=== PATIENT | female | born 1990 | race Caucasian/White ===

== ENCOUNTER 2018-10-02 11:51 | Emergency (ER) | payer MEDICAID ==
[~2018-10-02] VITALS: Ht 154.9 cm; Wt 61.6 kg
[~2018-10-02 11:51] MED LIST: BISA10SU60 RC; DIAZ5TAB4 PO; HYDR-4353 PO; IBUP-24 PO; NABU500T2 PO; ONDA8TAB9 PO
[2018-10-02 12:00] VITALS: BP 121/83
[2018-10-02] MEDS ORDERED: vancomycin/NS 1 GM ADD-VANTAGE 250 ML IV ONE (13:20)
[2018-10-02] MEDS ORDERED: SULF1TAB49 PO (13:42)
[2018-10-02] MEDS ORDERED: CEPH500C5 PO (13:42)
[2018-10-02] MEDS ORDERED: ACET-3068 PO (13:42)
[2018-10-02] MEDS ORDERED: diphenhydrAMINE 50 mg/ml inj IV ONE (14:50)
== END 2018-10-02 14:57 | disposition home or self-care (01) ==
LOC: ER 11:51
DX: H66.92 Otitis media, unspecified, left ear (principal); G89.29 Other chronic pain; F12.90 Cannabis use, unspecified, uncomplicated; Z98.51 Tubal ligation status; Z88.8 Allergy status to other drugs, medicaments and biological substances
CPT/HCPCS: 96365; 96375; 99283; J1200; J3370

== ENCOUNTER 2019-01-29 16:23 | Emergency (ER) | payer MEDICAID ==
[~2019-01-29] VITALS: Ht 157.5 cm; Wt 67.5 kg
[~2019-01-29 16:23] MED LIST changes: +CEPH500C5 PO
[2019-01-29 16:31] VITALS: BP 108/78
[2019-01-29] MEDS ORDERED: LIDOcaine 5% patch TP STA (17:14)
[2019-01-29] MEDS ORDERED: PRED20TA PO (17:35)
[2019-01-29] MEDS ORDERED: LIDO700A32 TOP (17:38)
== END 2019-01-29 17:52 | disposition home or self-care (01) ==
LOC: ER 16:23
DX: M25.512 Pain in left shoulder (principal); G89.29 Other chronic pain; F41.9 Anxiety disorder, unspecified; F32.9 Major depressive disorder, single episode, unspecified; F12.10 Cannabis abuse, uncomplicated; Z87.11 Personal history of peptic ulcer disease; Z87.440 Personal history of urinary (tract) infections; Z98.51 Tubal ligation status; Z88.1 Allergy status to other antibiotic agents; Z79.899 Other long term (current) drug therapy
CPT/HCPCS: 73030; 99283

== ENCOUNTER 2019-02-09 17:46 | Emergency (ER) | payer MEDICAID ==
[~2019-02-09] VITALS: Ht 162.6 cm; Wt 70.0 kg
[~2019-02-09 17:46] MED LIST changes: +LIDO700A32 TOP
[2019-02-09 18:23] LABS: BASOPHILS # (AUTO) 0.1 X10'3 (0-0.2); BASOPHILS % (AUTO) 1.2 % (0-1); EOSINOPHILS # (AUTO) 0.1 X10'3 (0-0.9); EOSINOPHILS % (AUTO) 1.3 % (0-6); HEMATOCRIT 38.2 % (35.0-45.0); HEMOGLOBIN 13.3 g/dl (12.0-16.0); LYMPHOCYTES # (AUTO) 1.9 X10'3 (1.1-4.8); LYMPHOCYTES % (AUTO) 30.9 % (21-51); MEAN CORPUSCULAR HEMOGLOBIN 31.2 PG (27.0-31.0); MEAN CORPUSCULAR HGB CONC 34.8 g/dL (33.0-36.5); MEAN CORPUSCULAR VOLUME 89.8 FL (78-98); MEAN PLATELET VOLUME 8.8 FL (7.4-10.4); MONOCYTES # (AUTO) 0.6 X10'3 (0-0.9); MONOCYTES % (AUTO) 10.4 % (2-12); NEUTROPHILS # (AUTO) 3.4 X10'3 (1.8-7.7); NEUTROPHILS % (AUTO) 56.2 % (42-75); PLATELET COUNT 189 X10'3 (140-440); RED BLOOD COUNT 4.26 X10'6 (4.20-5.60); RED CELL DISTRIBUTION WIDTH 13.1 % (11.5-14.5); WHITE BLOOD COUNT 6.1 X10'3 (4.5-11.0)
[2019-02-09 18:36] LABS: URINE HCG NEGATIVE (NEG)
[2019-02-09 18:37] LABS: CLARITY,URINE SLIGHTLY CLOUDY (Clear); COLOR,URINE YELLOW (Yellow); GLUCOSE, URINE NEGATIVE (Neg); KETONES,URINE NEGATIVE (Neg); LEUKOCYTE ESTERASE ,URINE NEGATIVE (Neg); NITRITES, URINE NEGATIVE (Neg); OCCULT BLOOD,URINE NEGATIVE (Neg); PH,URINE 6.5 (4.8-8.0); PROTEIN,URINE NEGATIVE (Neg); UROBILINOGEN,URINE 0.2 E.U/dL (0.2-1.0)
[2019-02-09 18:55] LABS: UA COLLECTION TYPE CLN CATCH MIDSTREAM
[2019-02-09 19:01] LABS: BACTERIA,URINE 2+ /HPF (Neg); RBC,URINE NONE SEEN /HPF (0-2); WBC,URINE 0-4 /HPF (0-4)
[2019-02-09 19:02] LABS: SQUAMOUS EPITHELIAL CELL,UR MANY /LPF (FEW)
--- NOTE | 2019-02-09 19:05 | NUR ---
URINE REJECTED FOR CULTURES PER LAB
[2019-02-09 19:27] LABS: ALANINE AMINOTRANSFERASE 19 U/L (12-78); ALKALINE PHOSPHATASE 46 IU/L (46-116); ANION GAP 10 (8-16); ASPARTATE AMINO TRANSFERASE 14 U/L (10-37); BLOOD UREA NITROGEN 18 MG/DL (7-18); BUN/CREATININE RATIO 19.8 (6.6-38.0); CALCIUM 9.3 MG/DL (8.5-10.1); CHLORIDE 105 MMOL/L (99-107); CREATININE 0.91 MG/DL (0.40-0.90); GLUCOSE 90 MG/DL (70-104); POTASSIUM 3.3 MMOL/L (3.5-5.1); SODIUM 139 MMOL/L (135-145); TOTAL CARBON DIOXIDE 24.3 MMOL/L (24-32); eGFR 73 ML/MIN
[2019-02-09 20:23] LABS: LIPASE 150 U/L (73-393)
[2019-02-09] MEDS ORDERED: ketorolac tromethamine 15mg/ml inj. IM ONE (20:45)
[2019-02-09] MEDS ORDERED: ondansetron 4mg rapidly disintigrating tab PO ONE (20:45)
--- NOTE | 2019-02-09 21:30 | NUR ---
US underway. Pt reports decrease of pain until US procedure where it is increasing again.
[2019-02-09] MEDS ORDERED: normal saline 1000ML IV soln IVB ONE (22:35)
[2019-02-09] MEDS ORDERED: morphine 4 MG/ML inj SYRINge IV ONE (22:35)
[2019-02-09] MEDS ORDERED: ondansetron/PF 4mg/2ml inj IV ONE (22:35)
[2019-02-09] MEDS ORDERED: ONDA4TAB6 PO (23:04)
[2019-02-09 23:20] VITALS: BP 121/87
== END 2019-02-09 23:26 | disposition home or self-care (01) ==
LOC: ER 17:47
DX: R10.11 Right upper quadrant pain (principal); R10.13 Epigastric pain; G89.29 Other chronic pain; F12.90 Cannabis use, unspecified, uncomplicated; Z88.8 Allergy status to other drugs, medicaments and biological substances; Z79.2 Long term (current) use of antibiotics; Z87.11 Personal history of peptic ulcer disease; Z98.51 Tubal ligation status; Z98.890 Other specified postprocedural states; Z79.899 Other long term (current) drug therapy
CPT/HCPCS: 36415; 74176; 76700; 80053; 81001; 81025; 83690; 85025; 85610; 96372; 96374; 96375; 99284; J1885; J2270; J2405; J7030

== ENCOUNTER 2019-05-30 08:26 | Emergency (ER) | payer OTHER, MEDICAID ==
[~2019-05-30] VITALS: Ht 157.5 cm; Wt 64.9 kg
[~2019-05-30 08:26] MED LIST changes: +ONDA4TAB6 PO
[2019-05-30 08:29] VITALS: BP 116/68
[2019-05-30] MEDS ORDERED: acetaminophen 325mg tablet PO ONE (09:05)
== END 2019-05-30 09:37 | disposition home or self-care (01) ==
LOC: ER 08:27
DX: S93.492A Sprain of other ligament of left ankle, initial encounter (principal); G89.29 Other chronic pain; F41.9 Anxiety disorder, unspecified; F32.9 Major depressive disorder, single episode, unspecified; F12.90 Cannabis use, unspecified, uncomplicated; Z98.51 Tubal ligation status; Z98.890 Other specified postprocedural states; Z88.8 Allergy status to other drugs, medicaments and biological substances; Z79.899 Other long term (current) drug therapy; X50.1XXA Overexertion from prolonged static or awkward postures, initial encounter; Y93.89 Activity, other specified; Y92.89 Other specified places as the place of occurrence of the external cause; Y99.8 Other external cause status
CPT/HCPCS: 73610; 99284

== ENCOUNTER 2019-09-14 13:14 | Emergency (ER) | payer MEDICAID, OTHER ==
[~2019-09-14] VITALS: Ht 154.9 cm; Wt 65.2 kg
[2019-09-14 13:38] VITALS: BP 145/95
[2019-09-14] MEDS ORDERED: LIDOcaine 1% W/epiNEPHrine 1:200,000 10ml vial IJ ONE (14:40)
[2019-09-14] MEDS ORDERED: BUPIVAcaine/PF 2.5 mg/ml (0.25%) 30ml vial IJ ONE (14:50)
[2019-09-14] MEDS ORDERED: BUPIVAcaine/PF 2.5mg/ml (0.25%) 10ml vial IJ ONE (15:05)
[2019-09-14] MEDS ORDERED: PENI500T2 PO (15:22)
== END 2019-09-14 15:46 | disposition home or self-care (01) ==
LOC: ER 13:15
DX: K04.7 Periapical abscess without sinus (principal); G89.29 Other chronic pain; F12.90 Cannabis use, unspecified, uncomplicated; Z87.891 Personal history of nicotine dependence; Z98.890 Other specified postprocedural states; Z98.51 Tubal ligation status; Z88.8 Allergy status to other drugs, medicaments and biological substances; Z79.899 Other long term (current) drug therapy
CPT/HCPCS: 64400; 99284; J3490

== ENCOUNTER 2019-10-22 15:01 | Emergency (ER) | payer MEDICAID ==
[~2019-10-22] VITALS: Ht 157.5 cm; Wt 65.9 kg
[~2019-10-22 15:01] MED LIST changes: -CEPH500C5 PO
[2019-10-22 15:56] VITALS: BP 131/81
[2019-10-22 16:41] LABS: BASOPHILS # (AUTO) 0.1 X10'3 (0-0.2); BASOPHILS % (AUTO) 1.7 % (0-1); EOSINOPHILS # (AUTO) 0.1 X10'3 (0-0.9); EOSINOPHILS % (AUTO) 0.8 % (0-6); HEMATOCRIT 39.6 % (35.0-45.0); HEMOGLOBIN 13.8 g/dl (12.0-16.0); LYMPHOCYTES # (AUTO) 1.9 X10'3 (1.1-4.8); LYMPHOCYTES % (AUTO) 29.9 % (21-51); MEAN CORPUSCULAR HEMOGLOBIN 31.9 PG (27.0-31.0); MEAN CORPUSCULAR HGB CONC 34.8 g/dL (33.0-36.5); MEAN CORPUSCULAR VOLUME 91.5 FL (78-98); MEAN PLATELET VOLUME 8.6 FL (7.4-10.4); MONOCYTES # (AUTO) 0.5 X10'3 (0-0.9); MONOCYTES % (AUTO) 7.9 % (2-12); NEUTROPHILS # (AUTO) 3.8 X10'3 (1.8-7.7); NEUTROPHILS % (AUTO) 59.7 % (42-75); PLATELET COUNT 214 X10'3 (140-440); RED BLOOD COUNT 4.33 X10'6 (4.20-5.60); RED CELL DISTRIBUTION WIDTH 13.5 % (11.5-14.5); WHITE BLOOD COUNT 6.4 X10'3 (4.5-11.0)
[2019-10-22 16:45] LABS: CLARITY,URINE CLOUDY (Clear); COLOR,URINE YELLOW (Yellow); GLUCOSE, URINE NEGATIVE (Neg); KETONES,URINE NEGATIVE (Neg); LEUKOCYTE ESTERASE ,URINE NEGATIVE (Neg); NITRITES, URINE NEGATIVE (Neg); OCCULT BLOOD,URINE NEGATIVE (Neg); PROTEIN,URINE NEGATIVE (Neg); URINE HCG NEGATIVE (NEG); UROBILINOGEN,URINE 0.2 E.U/dL (0.2-1.0)
[2019-10-22 16:47] LABS: UA COLLECTION TYPE CLN CATCH MIDSTREAM
[2019-10-22 16:51] LABS: AMORPHOUS URATES 3+; BACTERIA,URINE FEW /HPF (Neg); MUCUS STRANDS NONE SEEN /LPF (Neg); RBC,URINE NONE SEEN /HPF (0-2); SQUAMOUS EPITHELIAL CELL,UR MODERATE /LPF (FEW); WBC,URINE 0-4 /HPF (0-4)
[2019-10-22 16:52] LABS: YEAST FEW /HPF (NEGATIVE)
[2019-10-22 16:56] LABS: ALANINE AMINOTRANSFERASE 15 U/L (12-78); ALBUMIN 4.3 G/DL (3.4-5.0); ALBUMIN/GLOBULIN RATIO 1.1 (1.1-1.5); ALKALINE PHOSPHATASE 47 IU/L (46-116); ANION GAP 6 (8-16); ASPARTATE AMINO TRANSFERASE 15 U/L (10-37); BILIRUBIN,TOTAL 1.3 MG/DL (0.1-1.0); BLOOD UREA NITROGEN 24 MG/DL (7-18); CALCIUM 9.7 MG/DL (8.5-10.1); CHLORIDE 104 MMOL/L (99-107); CREATININE 0.89 MG/DL (0.40-0.90); GLUCOSE 87 MG/DL (70-104); LIPASE 130 U/L (73-393); POTASSIUM 3.9 MMOL/L (3.5-5.1); SODIUM 139 MMOL/L (135-145); TOTAL CARBON DIOXIDE 28.6 MMOL/L (24-32); TOTAL PROTEIN 8.1 G/DL (6.4-8.2); eGFR 74 ML/MIN
[2019-10-22] MEDS ORDERED: pantoprazole 40mg Tablet.DR PO STA (16:57)
[2019-10-22] MEDS ORDERED: ondansetron 4mg rapidly disintigrating tab PO ONE (17:00)
[2019-10-22] MEDS ORDERED: ONDA8TAB6 PO (17:06)
== END 2019-10-22 17:12 | disposition home or self-care (01) ==
LOC: ER 15:01
DX: R10.12 Left upper quadrant pain (principal); G89.29 Other chronic pain; F41.9 Anxiety disorder, unspecified; F32.9 Major depressive disorder, single episode, unspecified; F12.90 Cannabis use, unspecified, uncomplicated; Z98.51 Tubal ligation status; Z98.890 Other specified postprocedural states; Z88.8 Allergy status to other drugs, medicaments and biological substances; Z79.899 Other long term (current) drug therapy
CPT/HCPCS: 36415; 80053; 81001; 81025; 83690; 85025; 99283

== ENCOUNTER 2020-07-11 09:03 | Emergency (ER) | payer MEDICAID ==
[~2020-07-11] VITALS: Ht 157.5 cm; Wt 70.4 kg
[~2020-07-11 09:03] MED LIST changes: +NABU-134 PO; -NABU500T2 PO; +ONDA8TAB6 PO
[2020-07-11] MEDS ORDERED: morphine 10mg/ml inj. IV ONE (09:40)
[2020-07-11] MEDS ORDERED: normal saline 1000ML IV soln IVB ONE (09:40)
[2020-07-11] MEDS ORDERED: LORazepam 2 mg/ml vial IV ONE (09:40)
[2020-07-11] MEDS ORDERED: proCHLORperazine 10 MG/2 ml inj IV PRN (09:40)
[2020-07-11 10:44] LABS: BASOPHILS % (AUTO) 0.3 % (0-1); EOSINOPHILS % (AUTO) 0.3 % (0-6); HEMATOCRIT 37.6 % (35.0-45.0); HEMOGLOBIN 12.9 g/dl (12.0-16.0); LYMPHOCYTES # (AUTO) 0.4 X10'3 (1.1-4.8); LYMPHOCYTES % (AUTO) 2.6 % (21-51); MEAN CORPUSCULAR HEMOGLOBIN 31.5 PG (27.0-31.0); MEAN CORPUSCULAR HGB CONC 34.3 g/dL (33.0-36.5); MEAN CORPUSCULAR VOLUME 91.9 FL (78-98); MEAN PLATELET VOLUME 8.7 FL (7.4-10.4); MONOCYTES # (AUTO) 1.1 X10'3 (0-0.9); MONOCYTES % (AUTO) 7.2 % (2-12); NEUTROPHILS # (AUTO) 13.9 X10'3 (1.8-7.7); NEUTROPHILS % (AUTO) 89.6 % (42-75); PLATELET COUNT 186 X10'3 (140-440); RED BLOOD COUNT 4.09 X10'6 (4.20-5.60); WHITE BLOOD COUNT 15.5 X10'3 (4.5-11.0)
[2020-07-11] MEDS ORDERED: normal saline 1000ML IV soln IV ONE (10:50)
[2020-07-11 10:58] LABS: ALANINE AMINOTRANSFERASE 16 U/L (12-78); ALBUMIN 3.8 G/DL (3.4-5.0); ALBUMIN/GLOBULIN RATIO 0.9 (1.1-1.5); ALKALINE PHOSPHATASE 58 IU/L (46-116); ANION GAP 13 (8-16); ASPARTATE AMINO TRANSFERASE 17 U/L (10-37); BILIRUBIN,TOTAL 1.6 MG/DL (0.1-1.0); BLOOD UREA NITROGEN 10 MG/DL (7-18); BUN/CREATININE RATIO 8.7 (6.6-38.0); CALCIUM 9.1 MG/DL (8.5-10.1); CHLORIDE 96 MMOL/L (99-107); CREATININE 1.15 MG/DL (0.40-0.90); GLUCOSE 109 MG/DL (70-104); LIPASE 52 U/L (73-393); POTASSIUM 3.1 MMOL/L (3.5-5.1); SODIUM 131 MMOL/L (135-145); TOTAL CARBON DIOXIDE 22.1 MMOL/L (24-32); TOTAL PROTEIN 8.2 G/DL (6.4-8.2); eGFR 55 ML/MIN
[2020-07-11 11:51] LABS: CLARITY,URINE TURBID (Clear); COLOR,URINE STRAW (Yellow); GLUCOSE, URINE NEGATIVE (Neg); KETONES,URINE 40 mg/dl (Neg); LEUKOCYTE ESTERASE ,URINE SMALL (Neg); NITRITES, URINE NEGATIVE (Neg); OCCULT BLOOD,URINE LARGE (Neg); PROTEIN,URINE TRACE mg/dl (Neg); UROBILINOGEN,URINE 0.2 E.U/dL (0.2-1.0)
[2020-07-11 11:52] LABS: URINE HCG NEGATIVE (NEG)
[2020-07-11 12:02] LABS: SQUAMOUS EPITHELIAL CELL,UR MANY /LPF (FEW)
[2020-07-11 12:03] LABS: BACTERIA,URINE 4+ /HPF (Neg); MUCUS STRANDS NONE SEEN /LPF (Neg); RBC,URINE 0-2 /HPF (0-2)
[2020-07-11 12:05] LABS: TRANSITIONAL EPI CELLS,URINE FEW /HPF
[2020-07-11] MEDS ORDERED: ondansetron/PF 4mg/2ml inj IV ONE (12:45)
--- NOTE | 2020-07-11 13:02 | NUR ---
PT TO CT.
[2020-07-11 13:36] LABS: UA COLLECTION TYPE NON-SPECIFIED
[2020-07-11] MEDS ORDERED: CefTRIAXone/D5W-Rocephin 1gm 50 ML IV ONE (13:45)
[2020-07-11] MEDS ORDERED: CIPR-230 PO (14:46)
[2020-07-11] MEDS ORDERED: ONDA4TAB6 PO (14:46)
[2020-07-11 15:17] VITALS: BP 103/59
== END 2020-07-11 15:22 | disposition home or self-care (01) ==
LOC: ER 09:03
DX: N12 Tubulo-interstitial nephritis, not specified as acute or chronic (principal); N28.89 Other specified disorders of kidney and ureter; R11.2 Nausea with vomiting, unspecified; R50.9 Fever, unspecified; G89.29 Other chronic pain; F41.9 Anxiety disorder, unspecified; F32.9 Major depressive disorder, single episode, unspecified; F12.90 Cannabis use, unspecified, uncomplicated; Z87.11 Personal history of peptic ulcer disease; Z87.440 Personal history of urinary (tract) infections; Z98.51 Tubal ligation status; Z98.890 Other specified postprocedural states; Z88.1 Allergy status to other antibiotic agents; Z88.8 Allergy status to other drugs, medicaments and biological substances; Z79.2 Long term (current) use of antibiotics; Z79.899 Other long term (current) drug therapy
CPT/HCPCS: 36415; 74176; 76775; 80053; 81001; 81025; 83605; 83690; 84145; 85025; 87040; 96361; 96365; 96375; 99285; J0696; J0780; J2060; J2270; J7030

== ENCOUNTER 2021-01-15 14:33 | Emergency (ER) | payer MEDICAID ==
[~2021-01-15] VITALS: Ht 157.5 cm; Wt 66.2 kg
[~2021-01-15 14:33] MED LIST changes: -NABU-134 PO; +NABU-139 PO
[2021-01-15 14:57] VITALS: BP 126/81
--- NOTE | 2021-01-15 15:10 | NUR ---
PT STATED TAKES IBUPROFEN DURING DAY AND OXICODONE 5 OF 10MG DOSE AT NIGHT. STATED PAIN IS NOT CONTROLLED BUT PMD DOESNT WANT TO CHANGE PAIN MEDICATION ORDER. 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
[2021-01-15] MEDS ORDERED: LIDOcaine 5% patch TP STA (16:37)
[2021-01-15] MEDS ORDERED: ketorolac tromethamine 15mg/ml inj. IM ONE (16:40)
[2021-01-15] MEDS ORDERED: DICL100G15 TOP (16:52)
[2021-01-15] MEDS ORDERED: LIDO700A32 TOP (16:52)
== END 2021-01-15 17:26 | disposition home or self-care (01) ==
LOC: ER 14:34
DX: M75.42 Impingement syndrome of left shoulder (principal); M25.512 Pain in left shoulder; G89.29 Other chronic pain; F41.9 Anxiety disorder, unspecified; F32.9 Major depressive disorder, single episode, unspecified; F12.90 Cannabis use, unspecified, uncomplicated; Z87.11 Personal history of peptic ulcer disease; Z87.440 Personal history of urinary (tract) infections; Z98.51 Tubal ligation status; Z98.890 Other specified postprocedural states; Z88.1 Allergy status to other antibiotic agents; Z88.8 Allergy status to other drugs, medicaments and biological substances; Z79.899 Other long term (current) drug therapy
CPT/HCPCS: 96372; 99283; J1885

== ENCOUNTER 2021-11-13 18:35 | Emergency (ER) | payer MEDICAID ==
[~2021-11-13] VITALS: Ht 154.9 cm; Wt 68.1 kg
[~2021-11-13 18:35] MED LIST changes: +DICL100G15 TOP
--- NOTE | 2021-11-13 20:45 | NUR ---
DELIMER at bedside
--- NOTE | 2021-11-13 21:16 | NUR ---
Eduardo barkley in [facility] - 11/13/21 at [address] friedman bedside
--- NOTE | 2021-11-13 21:19 | NUR ---
Dr Santacruzfs at bedside
[2021-11-13] MEDS ORDERED: SULF1TAB45 PO (21:32)
[2021-11-13 21:48] VITALS: BP 114/77
== END 2021-11-13 21:50 | disposition home or self-care (01) ==
LOC: ER 18:36
DX: R22.41 Localized swelling, mass and lump, right lower limb (principal); F41.9 Anxiety disorder, unspecified; F32.9 Major depressive disorder, single episode, unspecified; F12.10 Cannabis abuse, uncomplicated; G89.29 Other chronic pain; Z88.8 Allergy status to other drugs, medicaments and biological substances; Z88.6 Allergy status to analgesic agent; Z79.899 Other long term (current) drug therapy
CPT/HCPCS: 99283

== ENCOUNTER 2024-06-01 18:55 | Emergency (ER) | payer MEDICAID ==
[~2024-06-01] VITALS: Ht 154.9 cm; Wt 69.5 kg
[2024-06-01 19:30] LABS: BASOPHILS % (AUTO) 0.6 % (0-1); EOSINOPHILS # (AUTO) 0.1 X10'3 (0-0.9); HEMATOCRIT 37.8 % (35.0-45.0); HEMOGLOBIN 12.8 g/dl (12.0-16.0); LYMPHOCYTES # (AUTO) 1.9 X10'3 (1.1-4.8); LYMPHOCYTES % (AUTO) 27.7 % (21-51); MEAN CORPUSCULAR HEMOGLOBIN 30.9 PG (27.0-31.0); MEAN CORPUSCULAR VOLUME 90.8 FL (78-98); MEAN PLATELET VOLUME 8.6 FL (7.4-10.4); MONOCYTES # (AUTO) 0.7 X10'3 (0-0.9); MONOCYTES % (AUTO) 10.3 % (2-12); NEUTROPHILS # (AUTO) 4.2 X10'3 (1.8-7.7); NEUTROPHILS % (AUTO) 60.4 % (42-75); PLATELET COUNT 243 X10'3 (140-440); RED BLOOD COUNT 4.16 X10'6 (4.20-5.60); RED CELL DISTRIBUTION WIDTH 12.9 % (11.5-14.5); WHITE BLOOD COUNT 6.9 X10'3 (4.5-11.0)
[2024-06-01 19:48] LABS: ALANINE AMINOTRANSFERASE 21 U/L (12-78); ALBUMIN 3.7 G/DL (3.4-5.0); ALBUMIN/GLOBULIN RATIO 0.9 (1.1-1.5); ALKALINE PHOSPHATASE 48 IU/L (46-116); ANION GAP 11 (8-16); ASPARTATE AMINO TRANSFERASE 15 U/L (10-37); BILIRUBIN,TOTAL 0.9 MG/DL (0.1-1.0); BLOOD UREA NITROGEN 19 MG/DL (7-18); BUN/CREATININE RATIO 18.1 (10.0-20.0); CALCIUM 9.1 MG/DL (8.5-10.1); CHLORIDE 105 MMOL/L (99-107); CREATININE 1.05 MG/DL (0.40-0.90); GLUCOSE 101 MG/DL (70-104); POTASSIUM 3.4 MMOL/L (3.5-5.1); SODIUM 141 MMOL/L (135-145); TOTAL CARBON DIOXIDE 24.9 MMOL/L (24-32); TOTAL PROTEIN 7.7 G/DL (6.4-8.2); eCRCL 56 ML/MIN; eGFR 59 ML/MIN
[2024-06-01 19:55] LABS: PRO BRAIN NATRIURETIC PEPTIDE 78 PG/ML (0-125)
[2024-06-01] MEDS: acetaminophen 325mg tablet PO ONE (22:32)
[2024-06-01] MEDS: ketorolac trometh 30MG/ML vial 30 MG/ML VIAL IM ONE (22:34)
[2024-06-01 22:39] VITALS: BP 116/80; PULSE 69; RESP 12; TEMP 97.8; O2SAT 99
== END 2024-06-01 22:41 | disposition home or self-care (01) ==
LOC: ER 18:55
DX: R07.89 Other chest pain (principal); M54.50 Low back pain, unspecified; F12.90 Cannabis use, unspecified, uncomplicated; Z88.1 Allergy status to other antibiotic agents; Z88.5 Allergy status to narcotic agent; Z88.8 Allergy status to other drugs, medicaments and biological substances; Z87.440 Personal history of urinary (tract) infections; Z87.11 Personal history of peptic ulcer disease; Z87.19 Personal history of other diseases of the digestive system; Z98.51 Tubal ligation status
CPT/HCPCS: 36415; 71045; 80053; 83880; 84484; 85025; 93005; 96372; 99285; J1885

== ENCOUNTER 2025-03-24 09:13 | Emergency (ER) | payer MEDICAID ==
[~2025-03-24] VITALS: Ht 154.9 cm; Wt 66.8 kg
[~2025-03-24 09:13] MED LIST changes: +LIDO-52 TOP; -LIDO700A32 TOP
[2025-03-24 09:17] VITALS: TEMP 99.1
[2025-03-24 10:30] LABS: MEAN PLATELET VOLUME 9.5 FL (7.4-10.4); RED CELL DISTRIBUTION WIDTH 14.0 % (11.5-14.5)
--- NOTE | 2025-03-24 10:32 | Physician Documentation ---
History of Present Illness ~ Chief Complaint: Abdominal Pain w/vomiting Stated Complaint: MULTIPLE MED COMPLAINTS Time Seen by MD: 10:18 Primary Medical Doctor: Dr. Mesfin Thacker Source: patient Mode of Arrival: POV Exam Limitations: no limitations HPI Chief Complaint: Abdominal pain, nausea and vomiting Caveat: None Independent Historians: None History of Present Illness: Patient is a 34-year-old woman who complains of diffuse abdominal pain that began . Patient is started vomiting on March 13 and has been vomiting with nausea every day since then. March 12 she was seen by nurse practitioner for Dr. Peralta with gastroenterology who had prescribed her Cipro on March 12. The next day she started to have nausea vomiting. Patient had a colonoscopy on March 01. Patient had a bowel movement yesterday that was white in color and another one this morning. No diarrhea. Patient states that she has had chronic pain nausea and vomiting since she was young the proximally 13 years of age. Patient also smokes marijuana from a very young age. Patient is scheduled to have an endoscopy with Dr. Perlata late March. Patient states that she is having hot flashes. No known fever. PATIENT STATES THAT SHE HAD CABA STOOL YESTERDAY AND TODAY X1. NO MELENA. Review of systems: All systems were reviewed and are negative except for what is indicated in the history of present illness. Past Medical History: Chronic abdominal pain, chronic nausea and vomiting Past Surgical History: Tubal ligation, Social History: Marijuana use, denies other drug use, denies tobacco use Medications: Reviewed as documented Nursing Notes Allergies: Reviewed as documented in Nursing Notes Medication Reconciliation Allergies: Coded Allergies: metronidazole (Verified Allergy, Mild, dizziness and blurred vision, 03/24/25) promethazine HCl (Verified Adverse Reaction, Unknown, 03/24/25) Pt reports makes Rx increases her nausea and emesis Uncoded Allergies: BUDENOSIDE (Allergy, Mild, SHAKY, 01/15/21) Scheduled Bisacodyl (Dulcolax), 1 SUPP RC DAILY Diclofenac Sodium (Voltaren), 1 GM TOP BID Hydrocodone Bit/Acetaminophen ([place] 10-325 Tablet), 1 TAB PO Q6H Lidocaine (Lidoderm), 1 PATCH TOP Q12H PRN Lidocaine (Lidoderm), 1 PATCH TOP Q12H PRN Nabumetone (Nabumetone), 1 TAB PO Q12H Ondansetron Hcl (Zofran), 1 TAB PO Q8H Ondansetron Hcl (Zofran), 1 TAB PO Q6H Scheduled PRN Diazepam (Diazepam), 1 TAB PO Q6H PRN PRN for pain Hydrocodone Bit/Acetaminophen ([place] 10-325 Tablet), 1 TABLET PO DAILY PRN for p ain, (Reported) Ibuprofen (Advil), 1-2 TAB PO DAILY PRN for pain, (Reported) Ondansetron (Zofran Odt), 8 MG PO TID PRN PRN for nausea/vomiting, (Reported) Ondansetron Hcl (Zofran), 1 TAB PO Q6H PRN for nausea/vomiting Past Medical History Past Medical History: *GI/HEPATOBILIARY*, Gastritis, Peptic Ulcer Disease, Hernia, UTI, Chronic Pain, Anxiety, Depression Past Surgical History: , tubal ligation Alcohol Use: None Drug Use: marijuana Lives with: Spouse, Family Lives In: Home Occupation: employed Review of Systems All Other Systems at this time: Reviewed and Negative ROS Patient denies any other acute symptoms other than above. All other systems are negative Physical Exam Vital Signs: RN Vital Signs have been reviewed: Yes, Temperature: 99.1, Source: Oral, Heart Rate: 69, Respiratory Rate: 18, BP: 135/88, Pulse Oximetry: 98, Weight: 66.820 Pulse Oximetry Reflects: adequate oxygenation Physical Exam General Appearance: MILD DISTRESS HEENT: Normal OP, moist oral mucosa, PERRL, EOMI Neck: supple, normal ROM, trachea midline Pulmonary: No respiratory distress, CTA, BS equal Cardiac: RRR, no murmur, rub or gallop, GI: nondistended, soft, DIFFUSE TENDERNESS, normal bowel sounds, no guarding, no rebound Extremities: normal ROM, no swelling, non-tender Skin: intact, dry, warm, no rashes Neuro: AAOx3, speech is clear, no focal motor weakness Psych: normal affect, good eye contact, no apparent hallucination, normal speech Progress Results/Orders Results/Orders Orders - NATHALIE KOEHLER MD Morphine 4mg/Ml Inj. (Morphine Inj.) (03/24/25 10:25) Ed Iv Antiemetics (03/24/25 10:24) Ed Iv Pain Medications (03/24/25 10:24) Po Challenge (03/24/25 15:33) Completed Orders - NATHALIE KOEHLER MD Urinalysis, Cult If Indicated (03/24/25 09:22) Hcg, Ur Ql (03/24/25 09:22) Cbc/Diff (03/24/25 09:22) BMP (03/24/25 09:22) Lipase (03/24/25 09:22) CMP (03/24/25 09:22) Normal Saline 1000ml (0.9% Sodium Chlori (03/24/25 10:25) Diphenhydramine Inj (Benadryl Inj.) (03/24/25 10:25) Ketorolac Trometh 15mg/Ml Vial (Toradol (03/24/25 10:25) Haloperidol Lact. (Haldol) (03/24/25 10:25) Medications Received in ER Medications (Trade) Dose Ordered Sig/Scottie Route PRN Reason Start Time Stop Time Status Last Admin Dose Admin (morphine inj.) 4 mg Q20M PRN IV moderate to severe pain 4-10 03/24/25 10:25 03/24/25 11:46 4 MG (0.9% sodium chloride (NS) 1000ml IV soln) 1,000 ml ONCE ONCE IVB 03/24/25 10:25 03/24/25 10:26 DC 03/24/25 10:40 1,000 ML (Benadryl inj.) 50 mg ONCE ONCE IV 03/24/25 10:25 03/24/25 10:26 DC 03/24/25 10:45 50 MG (Toradol injection) 15 mg ONCE ONCE IV 03/24/25 10:25 03/24/25 10:33 DC 03/24/25 10:45 15 MG (Haldol) 5 mg ONCE ONCE IM 03/24/25 10:25 03/24/25 10:26 DC 03/24/25 10:45 5 MG Vital Signs 03/24/25 03/24/25 03/24/25 03/24/25 09:17 10:20 10:30 12:30 Temp 99.1 Pulse 69 72 68 Resp 18 18 18 B/P (MAP) 135/88 126/82 (97) 128/80 (96) Pulse Ox 98 98 98 O2 Flow Rate 0 0 7/26/25 7/26/25 14:36 16:36 Pulse 63 77 Resp 18 18 B/P (MAP) 110/75 (87) 119/84 (96) Pulse Ox 97 99 O2 Flow Rate 0 0 Laboratory Tests Test 03/24/25 09:50 03/24/25 10:20 White Blood Count 6.0 Red Blood Count 4.54 Hemoglobin 14.1 Hematocrit 41.0 Mean Corpuscular Volume 90.4 Mean Corpuscular Hemoglobin 31.2 H Mean Corpuscular Hemoglobin Concent 34.5 Red Cell Distribution Width 14.0 Platelet Count 250 Mean Platelet Volume 9.5 Neutrophils (%) (Auto) 72.9 Lymphocytes (%) (Auto) 18.6 L Monocytes (%) (Auto) 7.4 Eosinophils (%) (Auto) 0.4 Basophils (%) (Auto) 0.7 Neutrophils # (Auto) 4.4 Lymphocytes # (Auto) 1.1 Monocytes # (Auto) 0.4 Eosinophils # (Auto) 0.0 Basophils # (Auto) 0.0 CBC Comment Sodium Level 139 Potassium Level 3.3 L Chloride Level 103 Carbon Dioxide Level 24.2 Anion Gap 12 Blood Urea Nitrogen 10 Creatinine 0.97 H Estimated GFR/1.73 m2 65 BUN/Creatinine Ratio 10.3 Glucose Level 115 H Calcium Level 8.8 Total Bilirubin 1.3 H Aspartate Amino Transf (AST/SGOT) 18 Alanine Aminotransferase (ALT/SGPT) 19 Alkaline Phosphatase 48 Total Protein 7.6 Albumin 4.0 Globulin 3.6 Albumin/Globulin Ratio 1.1 Lipase 20 Chemistry Comments Urine Specimen Description Cln catch midstream Urine Color Yellow Urine Clarity Clear Urine pH 6.0 Urine Specific [place] <=1.005 Urine Protein Negative Urine Glucose (UA) Negative Urine Ketones 15 H Urine Occult Blood Negative Urine Nitrite Negative Urine Bilirubin Negative Urine Urobilinogen 0.2 Urine Leukocyte Esterase Negative Urine Culture Indicated Not ind Volume Urine Centrifuged 10 ml Urine HCG, Qualitative Negative Urine Comment Medical Decision Making Additional info obtained from: old records Findings Differential diagnosis includes but is not limited to: EKG independent interpretation: Chest x-ray, single view, indication: Independent interpretation: Laboratory data independent interpretation: CBC: Normal CMP: Unremarkable, potassium 3.3, creatinine 0.97 Urinalysis: Unremarkable Urine : Negative Emergency department course/medical decision-making: Patient appears to present with the acute on chronic abdominal pain nausea and vomiting. Patient was given Haldol 5 mg IM, Benadryl 50 mg IV and morphine 4 mg IV for her pain and nausea. Patient also given 1 L of normal saline. Patient also given Toradol 15 mg IV. Patient is feeling better and is able to drink fluids. Patient is not going to be imaged. Patient's abdominal exam is relatively unremarkable in her lab work is unremarkable. This is thought to be acute on chronic pain that she has had many workups on throughout the years. In regards to the new symptom of caba stool. There was no evidence of biliary obstruction except the bilirubin total is just above normal at 1.3 all of the other LFTs are normal. 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 Patient has an appointment with her plate glass installer helper and proximally one month. No medical or surgical emergency has been identified. Patient is stable for discharge. The patient has recurrent abdominal pain nausea and vomiting is likely secondary to her marijuana use assuming all her other prior workups and studies have been negative. Departure Time of Disposition: 17:08 Disposition: HOME / SELF CARE / HOMELESS Impression: Primary Impression: Acute exacerbation of chronic abdominal pain Additional Instructions: FOLLOW UP WITH YOUR GUM MACHINE FILLER SCHEDULED. IF ALL OF YOUR PRIOR WORKUPS HAVE BEEN NEGATIVE MARIJUANA MAY BE AN EXPLANATION FOR YOUR RECURRENT ABDOMINAL PAIN, NAUSEA AND VOMITING. Referrals: NO PRIMARY CARE PROVIDER (PCP) Education Educated: Patient Educated regarding: diagnosis, treatment, need for follow up Signature Scribe Signature: No scribe Attestation: No scribe NATHALIE KOEHLER MD Mar 24, 2025 10:32
[2025-03-24] MEDS: normal saline 1000ML IV soln IVB ONE (10:40)
[2025-03-24 10:44] LABS: LEUKOCYTE ESTERASE ,URINE NEGATIVE (Neg); NITRITES, URINE NEGATIVE (Neg); OCCULT BLOOD,URINE NEGATIVE (Neg)
[2025-03-24 10:45] LABS: URINE HCG NEGATIVE (NEG)
[2025-03-24] MEDS: haloperidol lactate 5mg/ml inj IM ONE (10:45)
[2025-03-24] MEDS: ketorolac trometh 15mg/ml vial 15 MG/ML ML IV ONE (10:45)
[2025-03-24 10:48] LABS: UA COLLECTION TYPE CLN CATCH MIDSTREAM
[2025-03-24 10:51] LABS: CREATININE 0.97 MG/DL (0.40-0.90); TOTAL CARBON DIOXIDE 24.2 MMOL/L (24-32); eCRCL 61 ML/MIN; eGFR 65 ML/MIN
[2025-03-24] MEDS: morphine 4 MG/ML inj SYRINge IV PRN (11:46)
[2025-03-24 17:32] VITALS: BP 113/73; PULSE 67; RESP 18; O2SAT 100
== END 2025-03-24 17:35 | disposition home or self-care (01) ==
LOC: ER 09:14
DX: G89.29 Other chronic pain (principal); R10.84 Generalized abdominal pain; F12.90 Cannabis use, unspecified, uncomplicated; F32.A Depression, unspecified; F41.9 Anxiety disorder, unspecified; Z87.19 Personal history of other diseases of the digestive system; Z88.1 Allergy status to other antibiotic agents; Z98.51 Tubal ligation status; Z88.8 Allergy status to other drugs, medicaments and biological substances; Z79.899 Other long term (current) drug therapy
CPT/HCPCS: 36415; 80053; 81003; 81025; 83690; 85025; 96361; 96372; 96374; 96375; 99285; J1200; J1630; J1885; J2270; J7030

== ENCOUNTER 2025-07-11 13:31 | Emergency (ER) | payer MEDICAID ==
[~2025-07-11] VITALS: Ht 154.9 cm; Wt 67.2 kg
[2025-07-11 13:33] VITALS: BP 114/67; PULSE 66; RESP 16; TEMP 98; O2SAT 99
--- NOTE | 2025-07-11 14:23 | RADIOLOGY REPORT ---
CLINICAL INDICATION: ANKLE PAIN RIGHT TECHNIQUE: 3 radiographic views of the right ankle were obtained. Comparison: None FINDINGS/IMPRESSION: There is no evidence of acute fracture or dislocation. The visualized joint space is well maintained. The alignment is anatomical. There is no radiopaque foreign body.
--- NOTE | 2025-07-11 14:36 | Physician Documentation ---
History of Present Illness ~ Chief Complaint: Ankle pain Stated Complaint: R ANKLE PAIN Time Seen by MD: 14:44 Primary Medical Doctor: Dr. Mesfin Thacker HPI Patient is a very pleasant 35-year-old female that presents to the emergency department for evaluation of a right ankle injury sustained yesterday. Patient reports that she was walking downhill when her dog ran it behind her tripped her causing her to roll her ankle. Patient's primary complaint is at the Achilles tendon at this time. Patient reports mild swelling at the site. Patient denies fever chills nausea vomiting diarrhea numbness or tingling in the affected extremity. Tetanus witin 5 years: No Medication Reconciliation Allergies: Coded Allergies: metronidazole (Verified Allergy, Mild, dizziness and blurred vision, 07/11/25) promethazine HCl (Verified Adverse Reaction, Unknown, 07/11/25) Pt reports makes Rx increases her nausea and emesis Uncoded Allergies: BUDENOSIDE (Allergy, Mild, SHAKY, 01/15/21) Scheduled Bisacodyl (Dulcolax), 1 SUPP RC DAILY Diclofenac Sodium (Voltaren), 1 GM TOP BID Hydrocodone Bit/Acetaminophen ([place] 10-325 Tablet), 1 TAB PO Q6H Lidocaine (Lidoderm), 1 PATCH TOP Q12H PRN Lidocaine (Lidoderm), 1 PATCH TOP Q12H PRN Nabumetone (Nabumetone), 1 TAB PO Q12H Ondansetron Hcl (Zofran), 1 TAB PO Q8H Ondansetron Hcl (Zofran), 1 TAB PO Q6H Scheduled PRN Diazepam (Diazepam), 1 TAB PO Q6H PRN PRN for pain Hydrocodone Bit/Acetaminophen ([place] 10-325 Tablet), 1 TABLET PO DAILY PRN for pain, (Reported) Ibuprofen (Advil), 1-2 TAB PO DAILY PRN for pain, (Reported) Ondansetron (Zofran Odt), 8 MG PO TID PRN PRN for nausea/vomiting, (Reported) Ondansetron Hcl (Zofran), 1 TAB PO Q6H PRN for nausea/vomiting Past Medical History Past Medical History: *GI/HEPATOBILIARY*, Gastritis, Peptic Ulcer Disease, Hernia, UTI, Chronic Pain, Anxiety, Depression Past Surgical History: , tubal ligation Alcohol Use: None Drug Use: marijuana Lives with: Spouse, Family Lives In: Home Occupation: employed Review of Systems ROS As stated above in the HPI, otherwise all systems are reviewed and negative. Physical Exam Vital Signs: Temperature: 98.0, Source: Temporal, Heart Rate: 66, Respiratory Rate: 16, BP: 114/67, Pulse Oximetry: 99, Weight: 67.200 Oxygen Flow Rate: 0 Physical Exam VITALS: Reviewed and as above. GENERAL: Alert, no apparent distress. HEENT: Normocephalic, atraumatic, PERRL, EOMI, dry mucosa, no erythema RESPIRATORY: Lungs clear, normal breath sounds, no respiratory distress. CHEST: No accessory muscle use, no retractions CV: Regular rate, rhythm, no edema, no murmur, No: JVD GI: Soft, non-tender, bowels sounds present, no rebound, guarding, or rigidity BACK: No CVA tenderness, or swelling MUSCULOSKELETAL No deformities, mild swelling noted to the posterior aspect of the right ankle, tenderness noted to the Achilles tendon with palpation and range of motion during examination. SKIN: Warm and dry, no rash NEURO: Oriented x4, No motor or sensory deficit PSYCH: Normal mood and affect, no agitation Progress Results/Orders Results/Orders Vital Signs 07/11/25 13:33 Temp 98.0 Pulse 66 Resp 16 B/P (MAP) 114/67 Pulse Ox 99 O2 Flow Rate 0 Medical Decision Making Additional information obtaine: other Findings Medical Decision-Making (MDM) Note: Discharge Summary Patient: 35-year-old female Presentation: Right ankle injury sustained yesterday while walking downhill; tripped by dog, resulting in inversion-type mechanism. Primary complaint: Pain localized to Achilles tendon region, mild swelling. Associated symptoms: Denies fever, chills, nausea, vomiting, diarrhea, numbness, or tingling. Assessment: History and physical exam consistent with acute ankle injury, likely soft tissue (ligamentous/tendinous) involvement. No evidence of neurovascular compromise. [place] Ankle Rules applied: No bone tenderness at malleoli, able to bear weight, no midfoot pain or tenderness. Radiologic evaluation (AP, lateral, mortise views) negative for fracture. Impression: No radiographic evidence of fracture. Likely mild to moderate soft tissue injury (sprain/strain) involving the Achilles tendon region. Management: Conservative treatment recommended: Protection, Rest, Ice, Compression, Elevation (MACIEL protocol). NSAIDs for pain control as needed. Early mobilization encouraged; avoid prolonged immobilization. Functional rehabilitation with [id number] and strengthening exercises as tolerated. Consider semirigid support (lace-up brace or air stirrup) for comfort and protection during ambulation. No indication for further imaging at this time given negative radiographs and absence of concerning features. Follow-up: Reexamination recommended in 3-5 days or sooner if symptoms worsen (increased pain, swelling, inability to bear weight, neurovascular changes). Carton Filling Machine Operator on prevention of recurrent injury: use of ankle support, proprioceptive training, and gradual return to activity. Discharge Condition: Stable, ambulatory, pain controlled, no acute complications. Patient education provided regarding injury, expected course, warning signs, and follow-up plan. General Diff Dx:Considerations: Include: Abrasion, Contusion, Fracture, Hematoma, Laceration, Malunion, Neurovascular injury, Open fracture, Sprain, Ulcer, Other Knee Diff Dx:Considerations: Include: Abrasion, Arthritis, Contusion, DJD, Fracture-femur, Fracture-fibula, Fracture-patella, Fracture-tibia, Gout, Hematoma, Laceration, Meniscus injury, Neurovascular injury, Open fracture, Rheumatoid arthritis, Septic, Sprain, Sprain-MCL, Sprain-LCL, Sprain-ACL, Sprain-PCL, Other Ankle Diff Dx:Considerations: Include: Abrasion, Arthritis, Contusion, DJD, Fracture-metatarsal, Fracture-fibula, Fracture-tarsal, Fracture-tibia, Gout, Hematoma, Laceration, Malunion, Neurovascular injury, Nonunion, Open fracture, Osteomyelitis, Rheumatoid arthritis, Sprain, Septic, Ulcer, Other Foot Diff Dx:Considerations: Include: Abrasion, Arthritis, Cellulitis, Contusion, Dislocation, DJD, Fracture-metatarsal, Fracture-phalynx, Fracture- tarsal, Gout, Hematoma, Ingrown toenail, Laceration, Malunion, Neurovascular injury, Open fracture, Paronychia, Puncture, Rheumatoid, Sprain, Septic, Subungual hematoma, Ulcer, Other Toe Diff Dx:Considerations: Include: Abrasion, Cellulitis, Contusion, Dislocation, Felon, Fracture, Hematoma, Laceration, Neurovascular injury, Open fracture, Paronychia, Subungual hematoma, Other Departure Impression: Primary Impression: Sprain of ankle Additional Impression: Strain of tendon of foot and ankle Condition: Stable Discharge Instructions: Ankle Sprain Additional Instructions: You have been evaluated for an ankle injury. Your X-rays did not show any broken bones. Please follow these instructions to help your ankle heal and to know when to seek further care. Care at Home Rest your ankle. Avoid activities that cause pain, but try to walk as much as you can tolerate. Early movement helps healing.[1][3-7] Ice your ankle. Apply an ice pack (wrapped in a damp cloth) to the injured area for 2030 minutes, 34 times a day for the first few days. Do not put ice directly on your skin.[2-5] Compression wrapping. Use an Jaya bandage to wrap your ankle snugly, but not so tight that it causes numbness, tingling, or changes in skin color. Start wrapping at the toes and move up toward the calf, overlapping the bandage as you go. Remove the wrap at night and reapply in the morning. Compression can help with comfort and mild swelling.[2-5] Elevate your ankle. Keep your ankle raised above the level of your heart as much as possible, especially in the first 48 hours, to help reduce swelling.[4-5] Pain control. You may use acetaminophen (Tylenol) or a nonsteroidal anti- inflammatory drug (NSAID) like ibuprofen as directed for pain.[1][3-6][9] Activity Early movement is important. Try gentle ankle movements as pain allows. Avoid prolonged rest or immobilization unless instructed otherwise. Support. You may use a brace or support for comfort and protection if recommended. Follow-Up Contact your primary care provider within 12 weeks for a recheck, or sooner if you have concerns or your symptoms worsen. Return to the emergency department immediately if you develop: Severe pain not controlled by medication Inability to move or bear weight on your ankle Numbness, tingling, or color changes in your foot Increasing swelling, redness, or warmth Fever or signs of infection Follow up with Orthopedics if your pain, swelling, or ability to walk does not improve after 12 weeks, or if your primary care provider recommends it. Prevention When you return to activity, consider ankle supports or braces and do gentle exercises to strengthen your ankle and improve balance. This can help prevent future injuries. If you have any questions or concerns, please contact your healthcare provider. Departure Forms: Excuse form Work or School Excused From: Work Excuse beginning now through the following date: Jul 11, 2025 May Return but still avoid physical Activity from now until: Jul 13, 2025 May Return to full physical activity as of: Jul 13, 2025 Education Educated: Patient Educated regarding: diagnosis, treatment, need for follow up Signature Scribe Signature: A Attestation: Scribed for Rebecca Harris by NEWTON Wild . 07/11/25 15:45 REBECCA HARRIS Jul 11, 2025 14:36
== END 2025-07-11 16:33 | disposition home or self-care (01) ==
LOC: ER 13:31
DX: S93.601A Unspecified sprain of right foot, initial encounter (principal); S96.911A Strain of unspecified muscle and tendon at ankle and foot level, right foot, initial encounter; G89.29 Other chronic pain; Z88.1 Allergy status to other antibiotic agents; Z88.8 Allergy status to other drugs, medicaments and biological substances; Z87.440 Personal history of urinary (tract) infections; Z87.19 Personal history of other diseases of the digestive system; Z87.11 Personal history of peptic ulcer disease; Z98.51 Tubal ligation status; Z79.899 Other long term (current) drug therapy; F41.9 Anxiety disorder, unspecified; F32.A Depression, unspecified; F12.90 Cannabis use, unspecified, uncomplicated; W01.0XXA Fall on same level from slipping, tripping and stumbling without subsequent striking against object, initial encounter; Y93.01 Activity, walking, marching and hiking; Y92.89 Other specified places as the place of occurrence of the external cause; Y99.8 Other external cause status
CPT/HCPCS: 73610; 99283; A6449